=== PATIENT | male | born 1960 | race Native Hawaiian/Other Pacific Islander ===

== ENCOUNTER 2017-04-23 14:45 | Emergency (ER) | payer MEDICAID, OTHER ==
[2017-04-23 15:17] VITALS: BMI 27.9
[2017-04-23] MEDS ORDERED: Erythromycin 0.5% Ophth Oint 1 APPLIC/3.5 G OD ONE (15:28)
[2017-04-23] MEDS ORDERED: Tmp-Smz 800 mg-160 mg DS Tab PO STA (15:29)
[2017-04-23 15:32] VITALS: BP 114/78; TEMP 97.9; O2SAT 99
[2017-04-23] MEDS ORDERED: Ciprofloxacin 0.3% OPTH SOLN OD STA (15:40)
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
[2017-04-23 16:17] VITALS: PULSE 79; RESP 16
== END 2017-04-23 16:18 | disposition home or self-care (01) ==
LOC: ED 14:45
DX: H00.012 Hordeolum externum right lower eyelid (principal)

== ENCOUNTER 2017-04-24 14:19 | Emergency (ER) | payer OTHER ==
[2017-04-24 14:19] VITALS: BMI 27.9
[2017-04-24 14:59] VITALS: BP 123/86; PULSE 75; RESP 18; TEMP 98.7; O2SAT 96
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
== END 2017-04-24 15:43 | disposition home or self-care (01) ==
LOC: ED 14:19
DX: H00.032 Abscess of right lower eyelid (principal)

== ENCOUNTER 2017-10-03 17:39 | Emergency (ER) | payer MEDICAID, OTHER ==
[2017-10-03 17:49] VITALS: BMI 27.9
[2017-10-03 19:42] LABS: BASO # 0.01 K/mm3 (0.0-2.0); BASO % 0.2 % (0.0-3.0); EOS # 0.1 (0.0-0.7); EOS % 1.7 % (1.5-5.0); GRAN # 2.32 (1.4-6.5); LYMPH # 1.9 (1.2-3.4); MEAN CELL VOLUME 91.3 fl (80.0-105.0); MEAN CORPUSCULAR HEMOGLOBIN 32.1 pg (25.0-35.0); MEAN CORPUSCULAR HGB CONC 35.1 g/dl (31.0-37.0); MEAN PLATELET VOLUME 9.9 fl (7.0-11.0); MONO # 0.4 (0.1-0.6); MONO % 9.1 % (1.0-6.0); RED CELL DISTRIBUTION WIDTH 12.2 % (11.5-14.5); WHITE BLOOD COUNT 4.7 10^3/ul (4.5-11.0)
[2017-10-03] MEDS ORDERED: Iohexol 350 MG/100 ML VIAL ONE (19:51)
[2017-10-03 19:53] LABS: INR 0.98 (0.93-1.08); PARTIAL THROMBOPLASTIN TIME 31.5 Seconds (25.1-36.5)
[2017-10-03 19:59] LABS: ALB/GLOB RATIO 1.2 (1.1-1.8); ALKALINE PHOSPHATASE 71 U/L (38-126); ALT/SGPT 56 U/L (7-56); AST/SGOT 34 U/L (17-59); BILIRUBIN,TOTAL 0.8 mg/dL (0.2-1.3); BLOOD UREA NITROGEN 15 mg/dL (7-21); CARBON DIOXIDE 26 mmol/L (21-33); CHLORIDE 107 mmol/L (98-107); GFR AFRICAN-AMERICAN > 60; GLUCOSE,RANDOM 110 mg/dL (70-110); POTASSIUM 4.2 mmol/L (3.6-5.0); SODIUM 140 mmol/L (132-148); TOTAL PROTEIN 7.2 g/dL (5.8-8.3)
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
[2017-10-03 20:11] LABS: TROPONIN I < 0.01 ng/mL
--- NOTE | 2017-10-03 20:30 | US ---
PROCEDURE: Right lower extremity venous US HISTORY: Leg pain and swelling. Evaluate for DVT. Recent knee surgery. PHYSICIAN(S): Reg Sears M.D. TECHNIQUE: Duplex sonography and color-flow Doppler with graded compression were used to evaluate the deep venous system of the right lower extremity. FINDINGS: The visualized deep venous system of the right lower extremity is sonographically normal and compressible. Normal waveforms and augmentation are seen. There is no sonographic evidence for deep venous thrombosis in the visualized segments of the right lower extremity. IMPRESSION: 1. No sonographic evidence for deep venous thrombosis in the visualized segments of the right lower extremity.
[2017-10-03 20:53] VITALS: O2SAT 95
--- NOTE | 2017-10-03 21:35 | CT ---
EXAM: CT Angiography Chest With Intravenous Contrast CLINICAL HISTORY: 57 years old, male; Pain; Chest pain; On breathing; Additional info: Leg swelling, cp TECHNIQUE: Axial computed tomographic angiography images of the chest with intravenous contrast using pulmonary embolism protocol. All CT scans at this facility use one or more dose reduction techniques, viz.: automated exposure control; ma/kV adjustment per patient size (including targeted exams where dose is matched to indication; i.e. head); or iterative reconstruction technique. MIP reconstructed images were created and reviewed. Coronal and sagittal reformatted images were created and reviewed. CONTRAST: 100 mL of OMNI administered intravenously. COMPARISON: CT - CHEST,ABDOMEN,PELVIS W/O CONT 2016-09-01 01:54 FINDINGS: Pulmonary arteries: No pulmonary embolism. Aorta: No thoracic aortic aneurysm. Lungs: No mass. No consolidation. Pleural spaces: No significant effusion. No pneumothorax. Heart: No cardiomegaly. No significant pericardial effusion. No evidence of right heart dysfunction. Bones: No acute fracture. Lymph nodes: No pathologically enlarged lymph nodes. IMPRESSION: No pulmonary embolism. The lungs are clear.
[2017-10-03 22:17] VITALS: BP 115/78; PULSE 68; RESP 16
--- NOTE | 2017-10-04 08:38 | RAD ---
HISTORY: leg swelling COMPARISON: CTA chest performed 10/03/17 TECHNIQUE: Chest PA and lateral FINDINGS: Examination limited by habitus and hypoinflation. LUNGS: No focal consolidation. Please note that chest x-ray has limited sensitivity for the detection of pulmonary masses. PLEURA: No significant pleural effusion identified. No definite pneumothorax . CARDIOVASCULAR: The cardiomediastinal silhouette appears within normal limits of size. OSSEOUS STRUCTURES: No acute osseous abnormality identified. VISUALIZED UPPER ABDOMEN: Unremarkable. OTHER FINDINGS: None. IMPRESSION: No focal consolidation, significant pleural effusion, or definite pneumothorax identified.
--- NOTE | 2017-10-04 22:03 | CARD ---
APPROVED REPORT EKG Measurement Heart [id number] <Conclusion> Normal sinus rhythm Normal ECG
== END 2017-10-03 22:17 | disposition home or self-care (01) ==
LOC: ED 17:39
DX: M79.89 Other specified soft tissue disorders (principal); Z96.651 Presence of right artificial knee joint
CPT/HCPCS: 71020; 71275; 80053; 82550; 83615; 84484; 85025; 85610; 85730; 93005; 93971; 99285; Q9967